=== PATIENT | male | born 1970 | race Caucasian/White ===

== ENCOUNTER 2017-06-14 09:40 | Emergency (ER) | payer SELFPAY ==
[2017-06-14] MEDS ORDERED: ASPIRIN 325 MG TABLET PO ONE (09:57)
--- NOTE | 2017-06-14 10:01 | ER Document Report ---
ED Medical Screen (RME) - General Chief Complaint: Chest Pain Stated Complaint: INSECT BITE Time Seen by Provider: 06/14/17 09:56 Notes: Patient presents stating that he feels he may have a spider bite. He states yesterday he noticed some redness in his epigastric area and he then began to have severe chest pain and felt like an elephant was sitting on his chest. He also has shortness of breath. He stated the pain then radiated throughout his body. He states he still feels bad and aches all over. Patient's blood pressure is noticed to be high and he states he does not take any blood pressure medications. No history of cardiac disease. No history of any type of cardiac evaluation. TRAVEL OUTSIDE OF THE [place] IN LAST 30 DAYS: No - Related Data Allergies/Adverse Reactions: acetaminophen [From Percocet] Allergy (Verified 06/14/17 09:41) throat swelling oxycodone HCl [From Percocet] Allergy (Verified 06/14/17 09:41) throat swelling Penicillins Allergy (Verified 06/14/17 09:41) tongue/throat swelling Home Medications: Current Home Medications No Home Medications 06/14/17 [History] Past Medical History - Social History Frequency of alcohol use: Occasional - Past Medical History Cardiac Medical History: Reports: Hx Hypertension Pulmonary Medical History: Reports: Hx Pneumonia - 1995 Denies: Hx Tuberculosis Renal/ Medical History: Denies: Hx Peritoneal Dialysis Musculoskeltal Medical History: Reports Hx Arthritis Past Surgical History: Reports: Hx Herniorrhaphy - Immunizations Hx Diphtheria, Pertussis, Tetanus Vaccination: Yes Physical Exam - Vital signs Vitals: Temp Pulse Resp BP Pulse Ox 98.3 F 64 16 182/109 H 100 06/14/17 09:46 06/14/17 09:46 06/14/17 09:46 06/14/17 09:46 06/14/17 09:46 Course - Vital Signs Vital signs: Temp Pulse Resp BP Pulse Ox 98.3 F 64 16 182/109 H 100 06/14/17 09:46 06/14/17 09:46 06/14/17 09:46 06/14/17 09:46 06/14/17 09:46
[2017-06-14] MEDS ORDERED: NORMAL SALINE 1000 ML 1,000 ML IV PRN (10:03)
[2017-06-14] MEDS ORDERED: DIAZEPAM INJ 10 MG/2 ML DISP.SYRIN IV ONE (10:03)
[2017-06-14 10:26] LABS: ABSOLUTE EOSINOPHILS # (AUTO) 0.1 10^3/uL (0.0-0.6); ABSOLUTE MONOCYTES (AUTO) 0.7 10^3/uL (0.1-1.4); ABSOLUTE NEUT (AUTO) 4.3 10^3/uL (1.7-8.2); BASOPHILS % (AUTO) 0.5 % (0-2); EOSINOPHILS % (AUTO) 1.8 % (0-6); HEMATOCRIT 46.1 % (37.9-51.0); HEMOGLOBIN 15.9 g/dL (13.5-17.0); HGB HCT DIFFERENCE 1.6; LYMPHOCYTES % (AUTO) 28.2 % (13-45); MEAN CORPUSCULAR HEMOGLOBIN 33.1 pg (27.0-33.4); MEAN CORPUSCULAR HGB CONC 34.6 g/dL (32.0-36.0); MEAN CORPUSCULAR VOLUME 96 fl (80-97); MONOCYTES % (AUTO) 10.2 % (3-13); RED BLOOD COUNT 4.81 10^6/uL (4.35-5.55); SEGMENTED NEUTROPHILS % (AUTO) 59.3 % (42-78); WHITE BLOOD COUNT 7.2 10^3/uL (4.0-10.5)
[2017-06-14 10:55] LABS: CREATINE KINASE MB 1.34 ng/mL (<4.55)
[2017-06-14 11:00] LABS: TROPONIN I < 0.012 ng/mL
[2017-06-14 11:01] LABS: ALANINE AMINOTRANSFERASE 26 U/L (21-72); ALBUMIN 4.3 g/dL (3.5-5.0); ALKALINE PHOSPHATASE 92 U/L (38-126); ANION GAP 9 (5-19); ASPARTATE AMINO TRANSFERASE 24 U/L (17-59); BILIRUBIN,DIRECT 0.2 mg/dL (0.0-0.4); BILIRUBIN,TOTAL 0.3 mg/dL (0.2-1.3); BLOOD UREA NITROGEN 15 mg/dL (7-20); CALCIUM 10.1 mg/dL (8.4-10.2); CARBON DIOXIDE 27 mmol/L (22-30); CHLORIDE 105 mmol/L (98-107); CREATINE KINASE 212 U/L (55-170); CREATININE RESULT 0.93 mg/dL (0.52-1.25); GLUCOSE 87 mg/dL (75-110); POTASSIUM 4.2 mmol/L (3.6-5.0); SODIUM 140.9 mmol/L (137-145)
--- NOTE | 2017-06-14 13:10 | ER Document Report ---
ED General - General Chief Complaint: Chest Pain Stated Complaint: INSECT BITE Time Seen by Provider: 06/14/17 09:56 Mode of Arrival: Ambulatory Information source: Patient Notes: 46-year-old male who believes he was bitten by a black spider presents with complaints of chest wall pain. Patient denies any shortness of breath admits to body aches as well as midsternal pressure sensation. Patient denies any cardiac history. Patient believes he was bit yesterday and the symptoms started immediately. Patient notes that today the symptoms worsened and he called zuleyma fong who told him to come in. TRAVEL OUTSIDE OF THE [place] IN LAST 30 DAYS: No - HPI Onset: Yesterday Onset/Duration: Sudden Quality of pain: Achy Severity: Mild Pain Level: 1 Associated symptoms: Body/muscle aches, Chest pain Exacerbated by: Denies Relieved by: Denies Similar symptoms previously: No Recently seen / treated by doctor: No - Related Data Allergies/Adverse Reactions: acetaminophen [From Percocet] Allergy (Verified 06/14/17 09:41) throat swelling oxycodone HCl [From Percocet] Allergy (Verified 06/14/17 09:41) throat swelling Penicillins Allergy (Verified 06/14/17 09:41) tongue/throat swelling Home Medications: Current Home Medications No Home Medications 06/14/17 [History] Past Medical History - Social History Smoking Status: Current Every Day Smoker Cigarette use (# per day): Yes Chew tobacco use (# tins/day): No Smoking Education Provided: No Frequency of alcohol use: Occasional Family History: Reviewed & Not Pertinent Patient has suicidal ideation: No Patient has homicidal ideation: No - Past Medical History Cardiac Medical History: Reports: Hx Hypertension Pulmonary Medical History: Reports: Hx Pneumonia - 1995 Denies: Hx Tuberculosis Renal/ Medical History: Denies: Hx Peritoneal Dialysis Musculoskeltal Medical History: Reports Hx Arthritis Past Surgical History: Reports: Hx Abdominal Surgery - multiple hernia repairs, Hx Herniorrhaphy - Immunizations Hx Diphtheria, Pertussis, Tetanus Vaccination: Yes Review of Systems - Review of Systems Notes: REVIEW OF SYSTEMS: CONSTITUTIONAL : Denies fever, chills, or sweats. Denies recent illness. EENT: Denies eye, ear, throat, or mouth pain or symptoms. Denies nasal or sinus congestion or discharge. Denies throat, tongue, or mouth swelling or difficulty swallowing. CARDIOVASCULAR: Admits to chest pain RESPIRATORY: Denies cough, cold, or chest congestion. Denies shortness of breath, difficulty breathing, or wheezing. GASTROINTESTINAL: Denies abdominal pain or distention. Denies nausea, vomiting , or diarrhea. Denies blood in vomitus, stools, or per rectum. Denies black, tarry stools. Denies constipation. GENITOURINARY: Admits to difficulty urinating MUSCULOSKELETAL: Admits to body aches SKIN: Denies rash, lesions or sores. HEMATOLOGIC : Denies easy bruising or bleeding. LYMPHATIC: Denies swollen, enlarged glands. NEUROLOGICAL: Denies confusion or altered mental status. Denies passing out or loss of consciousness. Denies dizziness or lightheadedness. Denies headache. Denies weakness or paralysis or loss of use of either side. Denies problems with gait or speech. Denies sensory loss, numbness, or tingling. Denies seizures. PSYCHIATRIC: Denies anxiety or stress. Denies depression, suicidal ideation, or homicidal ideation. ALL OTHER SYSTEMS REVIEWED AND NEGATIVE. Dictation was performed using [employer] voice recognition software PHYSICAL EXAMINATION: GENERAL: Well-appearing, well-nourished and in no acute distress. HEAD: Atraumatic, normocephalic. EYES: Pupils equal round and reactive to light, extraocular movements intact, sclera anicteric, conjunctiva are normal. ENT: Nares patent, oropharynx clear without exudates. Moist mucous membranes. NECK: Normal range of motion, supple without lymphadenopathy LUNGS: Breath sounds clear to auscultation bilaterally and equal. No wheezes rales or rhonchi. HEART: Regular rate and rhythm without murmurs ABDOMEN: Soft, nontender, nondistended abdomen. No guarding, no rebound. No masses appreciated. Musculoskeletal: Normal range of motion, no pitting or edema. No cyanosis. NEUROLOGICAL: Cranial nerves grossly intact. Normal speech, normal gait. Normal sensory, motor exams PSYCH: Normal mood, normal affect. SKIN: Warm, Dry, normal turgor, no rashes or lesions noted. Physical Exam - Vital signs Vitals: Temp Pulse Resp BP Pulse Ox 98.3 F 64 16 182/109 H 100 06/14/17 09:46 06/14/17 09:46 06/14/17 09:46 06/14/17 09:46 06/14/17 09:46 Course - Re-evaluation Re-evalutation: 06/14/17 12:21 Patient is not in rhabdo, his lab work notes only mild CK elevation, he refuses to stay in the hospital for admission purposes for cardiac workup 06/14/17 15:16 Patient was discussed risks and benefits of not staying in the hospital. I believe his chest pain may be related more to cardiac nature rather than this bites Patient promises me he will return After performing a Medical Screening Examination, I spoke with the patient at length in regards to leaving the hospital against medical advice. I do not believe the patient should leave but the patient is alert oriented x4, understands the risks and benefits of staying and leaving including disability and . Pt understands that he can return at any time for further care and is more than welcome to do so. Pt verbalizes this understanding. - Vital Signs Vital signs: Temp Pulse Resp BP Pulse Ox 98.3 F 64 14 122/80 98 06/14/17 09:46 06/14/17 09:46 06/14/17 14:01 06/14/17 14:01 06/14/17 14:01 - Laboratory Result Diagrams: 06/14/17 10:06 06/14/17 10:06 Laboratory results interpreted by me: 06/14/17 10:06 Creatine Kinase 212 H - EKG Interpretation by Me EKG shows normal: Sinus rhythm, [place], Intervals, QRS Complexes Discharge - Discharge Clinical Impression: Chest pain Qualifiers: Chest pain type: unspecified Qualified Code(s): R07.9 - Chest pain, unspecified Condition: Stable Disposition: AGAINST MEDICAL ADVICE Instructions: Chest Pain of Unclear Cause ([facility]) Additional Instructions: You must return immediately if there are any other concerns
--- NOTE | 2017-06-14 13:31 | EKG REPORT ---
SEVERITY:- BORDERLINE ECG - SINUS RHYTHM SHORT RI INTERVAL, ACCELERATED AV CONDUCTION : Confirmed by: Carlos Maxwell MD 14-Jun-2017 13:30:23
[2017-06-14 14:04] VITALS: BP 122/80
== END 2017-06-14 14:18 | disposition left against medical advice (07) ==
LOC: ER 09:40
DX: R07.9 Chest pain, unspecified (principal); R07.89 Other chest pain; F17.210 Nicotine dependence, cigarettes, uncomplicated
CPT/HCPCS: 93005; 99285; 96361; 96374; 36415; 82553; 82550; 85025; 80053; 84484; 93010; J3360; J7030